=== PATIENT | female | born 1990 | race African-American/Black ===

== ENCOUNTER 2023-08-11 16:06 | Inpatient (IN) | payer OTHER ==
[2023-08-11] MEDS ORDERED: ELECTROLYTE-148 SOLN 1,000 ML IV SCH (16:45)
[2023-08-11] MEDS ORDERED: AMPICILLIN - 2 GM in SODIUM CHLORIDE 100 ML IVPB ONE (17:41)
[2023-08-11] MEDS ORDERED: ACETAMINOPHEN/CAFFEINE/BUTALBITAL 1 TAB PO ONE (17:42)
[2023-08-11] MEDS ORDERED: ACETAMINOPHEN/CAFFEINE/BUTALBITAL 1 TAB PO STA (17:42)
[2023-08-11] MEDS ORDERED: OXYTOCIN 30 UNITS in 0.9% NS 30 UNIT/500 ML INFUS.BAG IVPB SCH (17:45)
[2023-08-11 18:00] VITALS: BMI 36.8
[2023-08-11] MEDS ORDERED: SODIUM CHLORIDE 100 ML IVPB ONE (18:03)
[2023-08-11] MEDS ORDERED: AMPICILLIN SODIUM 2 GM VIAL ONE (18:03)
[2023-08-11] MEDS ORDERED: OXYTOCIN 30 UNITS in 0.9% NS 30 UNIT/500 ML INFUS.BAG IVPB ONE (18:30)
[2023-08-11 18:49] LABS: BASO % 0.3 % (0-2.0); EOS % 0.5 % (0-4.5); HEMATOCRIT 36.2 % (32.4-45.2); HEMOGLOBIN 12.5 GM/dL (10.7-15.3); LYMPH % 23.2 % (8-40); MCH 32.5 pg (25.7-33.7); MCHC 34.4 g/dl (32.0-36.0); MEAN CELL VOLUME 94.4 fl (80-96); MEAN PLT VOLUME 10.4 fl (7.5-11.1); PLATELET COUNT 91 10^3/uL (134-434); RBC 3.84 M/mm3 (3.60-5.2); RDW 14.2 % (11.6-15.6); RETICULOCYTES 2.45 % (0.5-1.5); WHITE BLOOD COUNT 7.1 K/mm3 (4.0-10.0)
[2023-08-11 18:53] LABS: INR 1.1 (0.83-1.09); PROTHROMBIN TIME (PATIENT) 12.7 SEC (9.7-13.0)
[2023-08-11 18:55] LABS: ACTIVATED PTT 30.8 SECONDS (25.2-36.5)
[2023-08-11 19:18] LABS: POTASSIUM 3.8 mmol/L (3.5-5.1)
[2023-08-11 19:21] LABS: ALBUMIN 2.8 g/dl (3.4-5.0); BLOOD UREA NITROGEN 10.8 mg/dL (7-18)
[2023-08-11 19:23] LABS: CREATININE 0.5 mg/dL (0.55-1.3); URIC ACID 3.3 mg/dL (2.6-7.2)
[2023-08-11 19:25] LABS: BILIRUBIN,TOTAL 0.4 mg/dL (0.2-1); TOT PROT 5.9 g/dl (6.4-8.2)
[2023-08-11] MEDS: ELECTROLYTE-148 SOLN 1,000 ML IV SCH (21:35)
[2023-08-11] MEDS ORDERED: AMPICILLIN SODIUM 1 GM VIAL ONE (21:50)
[2023-08-11] MEDS: AMPICILLIN - 1 GM in SODIUM CHLORIDE 100 ML IVPB SCH (21:55)
[2023-08-11] MEDS ORDERED: BUTORPHANOL TARTRATE 2 MG/ML VIAL IVPB ONE (22:19)
[2023-08-11] MEDS ORDERED: PROMETHAZINE HCL 25 MG/1 ML VIAL IVPB ONE (22:45)
[2023-08-11] MEDS ORDERED: BUTORPHANOL TARTRATE 2 MG/ML VIAL ONE (22:53)
[2023-08-11] MEDS ORDERED: PROMETHAZINE HCL 25 MG/1 ML VIAL ONE (22:54)
[2023-08-12] MEDS ORDERED: AMPICILLIN SODIUM 1 GM VIAL ONE ×4 (02:25→13:59)
[2023-08-12] MEDS: AMPICILLIN - 1 GM in SODIUM CHLORIDE 100 ML IVPB SCH ×5 (02:30→22:12)
[2023-08-12] MEDS ORDERED: LACTATED RINGERS SOLUTION 1,000 ML/1,000 ML INFUS.BAG IV SCH ×2 (04:15→04:30)
[2023-08-12] MEDS ORDERED: FENTANYL/BUPIVACAINE/NS/PF - PCEA - 50 ML DISP.SYRIN EP ONE ×4 (04:28→16:56)
[2023-08-12] MEDS ORDERED: LIDOCAINE HCL/EPINEPHRINE/PF 10 ML VIAL ONE (04:43)
[2023-08-12] MEDS ORDERED: FENTANYL CITRATE/PF 50 MCG/ML VIAL ONE (04:44)
[2023-08-12] MEDS ORDERED: BUPIVACAINE HCL/PF 0.25% (2.5MG/ML) 10 ML VIAL ONE (04:44)
[2023-08-12] MEDS ORDERED: NALOXONE HCL 0.4 MG/ML VIAL IVPUSH PRN (05:06)
[2023-08-12] MEDS: ELECTROLYTE-148 SOLN 1,000 ML IV SCH (05:10)
[2023-08-12] MEDS ORDERED: FENTANYL/BUPIVACAINE/NS/PF - PCEA - 50 ML DISP.SYRIN EP SCH ×2 (05:15→10:00)
[2023-08-12] MEDS: FENTANYL/BUPIVACAINE/NS/PF - PCEA - 50 ML DISP.SYRIN EP SCH ×2 (13:45→17:08)
[2023-08-12] MEDS ORDERED: OXYTOCIN 20 UNITS in 0.9% NS 20 UNIT/1,000 ML INFUS.BAG IV ONE ×2 (15:27→18:33)
[2023-08-12] MEDS ORDERED: LIDOCAINE HCL 1% PRESERVATIVE FREE - 30ML VIAL ONE (15:28)
[2023-08-12] MEDS ORDERED: MISOPROSTOL 200 MCG TABLET ONE (15:41)
[2023-08-12] MEDS ORDERED: BENZOCAINE 20% 57 GM BOTTLE TP PRN (15:50)
[2023-08-12] MEDS ORDERED: WITCH HAZEL 50% (TUCKS) 40 PAD/JAR PAD TP PRN (15:50)
[2023-08-12] MEDS ORDERED: METHYLERGONOVINE MALEATE 0.2 MG/1 ML AMP IM PRN (15:50)
[2023-08-12] MEDS ORDERED: BENZOCAINE 28 GM HEMORRHOIDAL OINTMENT TP PRN (15:50)
[2023-08-12] MEDS ORDERED: ACETAMINOPHEN 325 MG TABLET (FP) PO PRN (15:50)
[2023-08-12] MEDS ORDERED: BISACODYL 10 MG SUPP.RECT RC PRN (15:50)
[2023-08-12] MEDS ORDERED: MISOPROSTOL 200 MCG TABLET PR ONE (15:57)
[2023-08-12] MEDS ORDERED: OXYTOCIN 20 UNITS in 0.9% NS 20 UNIT/1,000 ML INFUS.BAG IV SCH (16:00)
[2023-08-12] MEDS ORDERED: TRANEXAMIC ACID 1000 MG/10 ML VIAL ONE (16:36)
[2023-08-12] MEDS ORDERED: METHYLERGONOVINE MALEATE 0.2 MG/1 ML AMP IM ONE (16:40)
[2023-08-12] MEDS ORDERED: TRANEXAMIC ACID 1000 MG/10 ML VIAL IVPB STA (16:40)
[2023-08-12 17:35] LABS: BASO % 0.2 % (0-2.0); EOS % 0.2 % (0-4.5); HEMATOCRIT 37.4 % (32.4-45.2); HEMOGLOBIN 12.6 GM/dL (10.7-15.3); LYMPH % 14.8 % (8-40); MCH 31.8 pg (25.7-33.7); MCHC 33.7 g/dl (32.0-36.0); MEAN CELL VOLUME 94.3 fl (80-96); MEAN PLT VOLUME 10.5 fl (7.5-11.1); MONO % 7.4 % (3.8-10.2); NEUT % 77.4 % (42.8-82.8); PLATELET COUNT 88 10^3/uL (134-434); RBC 3.96 M/mm3 (3.60-5.2); RDW 14.6 % (11.6-15.6); WHITE BLOOD COUNT 9.4 K/mm3 (4.0-10.0)
[2023-08-12] MEDS: IBUPROFEN 600 MG TABLET (FP) PO PRN (22:42)
[2023-08-13 08:14] LABS: BASO % 0.6 % (0-2.0); EOS % 0.8 % (0-4.5); HEMATOCRIT 35.2 % (32.4-45.2); HEMOGLOBIN 11.8 GM/dL (10.7-15.3); LYMPH % 22.6 % (8-40); MCH 32.2 pg (25.7-33.7); MCHC 33.6 g/dl (32.0-36.0); MEAN CELL VOLUME 95.9 fl (80-96); MONO % 8.6 % (3.8-10.2); NEUT % 67.4 % (42.8-82.8); PLATELET COUNT 91 10^3/uL (134-434); RBC 3.67 M/mm3 (3.60-5.2); RDW 14.1 % (11.6-15.6); WHITE BLOOD COUNT 9.8 K/mm3 (4.0-10.0)
[2023-08-13] MEDS ORDERED: FENTANYL/BUPIVACAINE/NS/PF - PCEA - 50 ML DISP.SYRIN EP SCH (10:00)
[2023-08-13] MEDS: PRENATAL VITAMINS W/ FOLIC ACID TABLET (FP) PO SCH (10:50)
[2023-08-13] MEDS: IBUPROFEN 600 MG TABLET (FP) PO PRN ×2 (10:51→22:44)
[2023-08-13] MEDS ORDERED: SIMETHICONE 80 MG TAB.CHEW (FP) PO PRN (17:24)
[2023-08-13] MEDS ORDERED: SENNOSIDES/DOCUSATE COMBO (SENNA PLUS) TABLET (UD) PO PRN (22:00)
[2023-08-14] MEDS: IBUPROFEN 600 MG TABLET (FP) PO PRN (09:21)
[2023-08-14] MEDS: PRENATAL VITAMINS W/ FOLIC ACID TABLET (FP) PO SCH (09:22)
[2023-08-14 09:29] VITALS: BP 121/88; PULSE 77; RESP 17; TEMP 97.5
== END 2023-08-14 14:00 | disposition home or self-care (01) | DRG 560 ==
LOC: JDEL 16:06 → JLDR 17:09 → J3W 08-12 19:30
PROVIDERS: ADMIT Obstetrics & Gynecology; ATTEND Obstetrics & Gynecology
PROC: 0HQ9XZZ Repair Perineum Skin, External Approach (ICD-10-PCS; principal; 2023-08-12)
PROC: 0W8NXZZ Division of Female Perineum, External Approach (ICD-10-PCS; 2023-08-12)
PROC: 10E0XZZ Delivery of Products of Conception, External Approach (ICD-10-PCS; 2023-08-12)
PROC: 10907ZC Drainage of Amniotic Fluid, Therapeutic from Products of Conception, Via Natural or Artificial Opening (ICD-10-PCS; 2023-08-12)
DX: O70.0 First degree perineal laceration during delivery (principal); O72.2 Delayed and secondary postpartum hemorrhage; O99.824 Streptococcus B carrier state complicating childbirth; Z3A.40 40 weeks gestation of pregnancy; Z37.0 Single live birth
CPT/HCPCS: 36415; 59025; 80053; 82977; 83010; 84550; 85025; 85045; 85610; 85730; 86593; 86780; 86850; 86900; 86901

== ENCOUNTER 2024-02-19 09:38 | Inpatient (IN) | payer OTHER ==
[2024-02-19] MEDS ORDERED: SIMETHICONE 80 MG TAB.CHEW (FP) ONE (11:10)
[2024-02-19] MEDS ORDERED: ACETAMINOPHEN INJECTION 100 ML IVPB ONE ×2 (11:11→20:41)
[2024-02-19] MEDS ORDERED: MAG HYDROX/AL HYDROX/SIMETH 30 ML UNIT-DOSE CUP ONE (11:11)
[2024-02-19] MEDS ORDERED: FAMOTIDINE 20 MG/50 ML IVPB 20 MG/50 ML MG IVPB ONE (11:11)
[2024-02-19] MEDS: MAG HYDROX/AL HYDROX/SIMETH 30 ML UNIT-DOSE CUP PO ONE (11:30)
[2024-02-19] MEDS: SIMETHICONE 80 MG TAB.CHEW (FP) PO ONE (11:30)
[2024-02-19] MEDS: FAMOTIDINE 20 MG/50 ML IVPB 20 MG/50 ML MG IVPB ONE (12:20)
[2024-02-19] MEDS: SODIUM CHLORIDE 0.9% 500 ML INFUS.BAG IV ONE (12:20)
[2024-02-19] MEDS: ACETAMINOPHEN 1000 MG/100 ML BAG IVPB ONE ×2 (12:20→20:49)
[2024-02-19 12:39] LABS: BASO % 0.8 % (0-2.0); EOS % 2.4 % (0-4.5); HEMATOCRIT 29.1 % (32.4-45.2); HEMOGLOBIN 9.9 GM/dL (10.7-15.3); LYMPH % 33.8 % (8-40); MCH 31.9 pg (25.7-33.7); MCHC 34.2 g/dl (32.0-36.0); MEAN CELL VOLUME 93.4 fl (80-96); MEAN PLT VOLUME 8.2 fl (7.5-11.1); MONO % 6.5 % (3.8-10.2); NEUT % 56.5 % (42.8-82.8); PLATELET COUNT 286 10^3/uL (134-434); RBC 3.11 M/mm3 (3.60-5.2); RDW 15.5 % (11.6-15.6); WHITE BLOOD COUNT 5.5 K/mm3 (4.0-10.0)
[2024-02-19 12:45] LABS: POTASSIUM 4.1 mmol/L (3.5-5.1)
[2024-02-19 12:46] LABS: INR 1.17 (0.83-1.09); PROTHROMBIN TIME (PATIENT) 13.2 SEC (9.7-13.0)
[2024-02-19 12:47] LABS: CALCIUM 8.7 mg/dL (8.5-10.1)
[2024-02-19 12:48] LABS: ACTIVATED PTT 38.3 SECONDS (25.2-36.5); ALBUMIN 3.4 g/dl (3.4-5.0); BLOOD UREA NITROGEN 19.6 mg/dL (7-18)
[2024-02-19 12:51] LABS: CREATININE 0.6 mg/dL (0.55-1.3)
[2024-02-19 12:52] LABS: BILIRUBIN,TOTAL 0.4 mg/dL (0.2-1)
[2024-02-19 12:53] LABS: TOT PROT 6.5 g/dl (6.4-8.2)
[2024-02-19] MEDS ORDERED: morphine SULFATE 4 MG/ML VIAL ONE (14:49)
[2024-02-19 14:50] LABS: URINE APPEARANCE CLEAR; URINE BILIRUBIN NEGATIVE (NEGATIVE); URINE COLOR YELLOW; URINE GLUCOSE (UA) NEGATIVE (NEGATIVE); URINE KETONE NEGATIVE (NEGATIVE); URINE LEUK ESTERASE NEGATIVE (NEGATIVE); URINE NITRITE NEGATIVE (NEGATIVE); URINE PROTEIN NEGATIVE (NEGATIVE); URINE UROBILINOGEN 0.2 mg/dL (0.2-1.0)
[2024-02-19] MEDS: morphine CARPU-JECT 4 MG/1 ML DISP.SYRIN IVPUSH ONE (14:56)
[2024-02-19] MEDS ORDERED: morphine CARPU-JECT 4 MG/1 ML DISP.SYRIN IVPUSH PRN (20:33)
[2024-02-20] MEDS ORDERED: morphine SULFATE 4 MG/ML VIAL ONE ×3 (01:15→13:39)
[2024-02-20] MEDS: morphine SULFATE 4 MG/ML VIAL IVPUSH PRN (01:22)
[2024-02-20 08:10] LABS: HEMATOCRIT 33.9 % (32.4-45.2); HEMOGLOBIN 11.3 GM/dL (10.7-15.3); MCH 31.3 pg (25.7-33.7); MCHC 33.2 g/dl (32.0-36.0); MEAN CELL VOLUME 94.2 fl (80-96); MEAN PLT VOLUME 8.7 fl (7.5-11.1); PLATELET COUNT 285 10^3/uL (134-434); RDW 15.2 % (11.6-15.6); WHITE BLOOD COUNT 4.7 K/mm3 (4.0-10.0)
[2024-02-20 08:34] LABS: POTASSIUM 4.1 mmol/L (3.5-5.1)
[2024-02-20 08:37] LABS: ALBUMIN 3.3 g/dl (3.4-5.0); BLOOD UREA NITROGEN 12.2 mg/dL (7-18); CALCIUM 8.9 mg/dL (8.5-10.1); MAGNESIUM 1.8 mg/dL (1.8-2.4)
[2024-02-20 08:40] LABS: CREATININE 0.5 mg/dL (0.55-1.3); PHOSPHOROUS 3.6 mg/dL (2.5-4.9)
[2024-02-20 08:42] LABS: BILIRUBIN,TOTAL 0.5 mg/dL (0.2-1); TOT PROT 6.4 g/dl (6.4-8.2)
[2024-02-20] MEDS: FERROUS SO4 325 MG TABLET (FP) PO SCH (10:14)
[2024-02-20] MEDS: ACETAMINOPHEN 1000 MG/100 ML BAG IVPB PRN (10:15)
[2024-02-20] MEDS ORDERED: ACETAMINOPHEN INJECTION 100 ML IVPB ONE (10:16)
[2024-02-20 15:48] VITALS: BMI 34.7
[2024-02-20] MEDS: MULTIVITAMINS (DAILY MVI) TABLET (FP) PO SCH (17:20)
[2024-02-20] MEDS: SODIUM CHLORIDE 1,000 ML IV SCH (17:21)
[2024-02-20] MEDS: CEFAZOLIN 1 GM in DEXTROSE 5%-WATER - 50 ML IVPB SCH (17:54)
[2024-02-20 18:59] LABS: BASO % 0.7 % (0-2.0); EOS % 2.9 % (0-4.5); HEMATOCRIT 29.7 % (32.4-45.2); HEMOGLOBIN 9.9 GM/dL (10.7-15.3); LYMPH % 36.4 % (8-40); MCH 31.2 pg (25.7-33.7); MCHC 33.3 g/dl (32.0-36.0); MEAN CELL VOLUME 93.6 fl (80-96); MEAN PLT VOLUME 8.4 fl (7.5-11.1); MONO % 5.2 % (3.8-10.2); NEUT % 54.8 % (42.8-82.8); PLATELET COUNT 261 10^3/uL (134-434); RBC 3.17 M/mm3 (3.60-5.2); RDW 14.9 % (11.6-15.6); WHITE BLOOD COUNT 4.9 K/mm3 (4.0-10.0)
[2024-02-20] MEDS: traMADol HCL 50 MG TABLET PO PRN (19:12)
[2024-02-21 08:55] LABS: BASO % 0.6 % (0-2.0); EOS % 2.8 % (0-4.5); HEMATOCRIT 29.1 % (32.4-45.2); HEMOGLOBIN 9.6 GM/dL (10.7-15.3); LYMPH % 33.9 % (8-40); MCH 31.1 pg (25.7-33.7); MCHC 33.1 g/dl (32.0-36.0); MEAN CELL VOLUME 93.9 fl (80-96); MEAN PLT VOLUME 8.8 fl (7.5-11.1); MONO % 6.2 % (3.8-10.2); NEUT % 56.5 % (42.8-82.8); PLATELET COUNT 263 10^3/uL (134-434); RDW 15.2 % (11.6-15.6); WHITE BLOOD COUNT 4.7 K/mm3 (4.0-10.0)
[2024-02-21 09:11] LABS: BLOOD UREA NITROGEN 13.4 mg/dL (7-18); CALCIUM 8.1 mg/dL (8.5-10.1); MAGNESIUM 1.7 mg/dL (1.8-2.4)
[2024-02-21 09:12] LABS: ALBUMIN 2.8 g/dl (3.4-5.0)
[2024-02-21 09:15] LABS: CREATININE 0.5 mg/dL (0.55-1.3)
[2024-02-21 09:16] LABS: BILIRUBIN,TOTAL 0.5 mg/dL (0.2-1); TOT PROT 5.5 g/dl (6.4-8.2)
[2024-02-21] MEDS: MAGNESIUM OXIDE 400 MG TABLET (FP) PO ONE (10:51)
[2024-02-21] MEDS: traMADol HCL 50 MG TABLET PO PRN (21:58)
[2024-02-22] MEDS: oxyCODONE HCL 5 MG TABLET PO PRN ×2 (08:36→13:12)
[2024-02-22 08:38] LABS: BASO % 0.7 % (0-2.0); EOS % 2.5 % (0-4.5); HEMOGLOBIN 10.8 GM/dL (10.7-15.3); MCH 30.5 pg (25.7-33.7); MCHC 32.6 g/dl (32.0-36.0); MEAN CELL VOLUME 93.7 fl (80-96); MEAN PLT VOLUME 9.2 fl (7.5-11.1); MONO % 6.4 % (3.8-10.2); NEUT % 59.4 % (42.8-82.8); PLATELET COUNT 305 10^3/uL (134-434); RBC 3.53 M/mm3 (3.60-5.2); RDW 15.1 % (11.6-15.6)
[2024-02-22 08:50] LABS: POTASSIUM 4.3 mmol/L (3.5-5.1)
[2024-02-22 09:04] LABS: BLOOD UREA NITROGEN 11.2 mg/dL (7-18)
[2024-02-22 09:07] LABS: ALBUMIN 3.2 g/dl (3.4-5.0); CREATININE 0.4 mg/dL (0.55-1.3); MAGNESIUM 1.9 mg/dL (1.8-2.4)
[2024-02-22 09:09] LABS: TOT PROT 6.3 g/dl (6.4-8.2)
[2024-02-22 09:11] LABS: BILIRUBIN,TOTAL 0.2 mg/dL (0.2-1)
[2024-02-22] MEDS: DOCUSATE SODIUM 100 MG CAPSULE (FP) PO SCH (12:19)
[2024-02-22] MEDS: POLYETHYLENE GLYCOL (HEALTHYLAX) 3350 17 GM PACKET PO SCH (12:19)
[2024-02-22 15:20] VITALS: RESP 18
[2024-02-22] MEDS: ENOXAPARIN NA (PORCINE) 40 MG/0.4 ML DISP.SYRIN SQ SCH (16:06)
[2024-02-22] MEDS: CEPHALEXIN MONOHYDRATE 500 MG CAPSULE (UD) PO SCH (16:06)
[2024-02-23 09:01] LABS: BASO % 0.8 % (0-2.0); EOS % 2.3 % (0-4.5); HEMATOCRIT 32.6 % (32.4-45.2); HEMOGLOBIN 10.9 GM/dL (10.7-15.3); LYMPH % 37.1 % (8-40); MCH 31.1 pg (25.7-33.7); MCHC 33.3 g/dl (32.0-36.0); MEAN CELL VOLUME 93.4 fl (80-96); MONO % 5.4 % (3.8-10.2); NEUT % 54.4 % (42.8-82.8); PLATELET COUNT 259 10^3/uL (134-434); RBC 3.49 M/mm3 (3.60-5.2); RDW 15.3 % (11.6-15.6); WHITE BLOOD COUNT 5.2 K/mm3 (4.0-10.0)
[2024-02-23 09:02] VITALS: BP 107/54; PULSE 79; TEMP 98.9
[2024-02-23 09:15] LABS: POTASSIUM 4.3 mmol/L (3.5-5.1)
[2024-02-23 09:19] LABS: CALCIUM 8.8 mg/dL (8.5-10.1)
[2024-02-23 09:20] LABS: ALBUMIN 3.4 g/dl (3.4-5.0)
[2024-02-23 09:23] LABS: BLOOD UREA NITROGEN 9.1 mg/dL (7-18); CREATININE 0.4 mg/dL (0.55-1.3)
[2024-02-23 09:25] LABS: BILIRUBIN,TOTAL 0.4 mg/dL (0.2-1); TOT PROT 6.5 g/dl (6.4-8.2)
== END 2024-02-23 12:43 | disposition home or self-care (01) | DRG 813 ==
LOC: JER 09:38 → JERBED 19:51 → J6S 02-20 13:54
PROVIDERS: ADMIT Internal Medicine; ATTEND Nurse Practitioner Family
PROC: 0W9G30Z Drainage of Peritoneal Cavity with Drainage Device, Percutaneous Approach (ICD-10-PCS; principal; 2024-02-20)
DX: L76.34 Postprocedural seroma of skin and subcutaneous tissue following other procedure (principal); D69.6 Thrombocytopenia, unspecified; L02.211 Cutaneous abscess of abdominal wall; D50.0 Iron deficiency anemia secondary to blood loss (chronic); E66.9 Obesity, unspecified; Z68.34 Body mass index [BMI] 34.0-34.9, adult; S30.1XXA Contusion of abdominal wall, initial encounter; X58.XXXA Exposure to other specified factors, initial encounter; Y93.9 Activity, unspecified; Y92.9 Unspecified place or not applicable; Y99.9 Unspecified external cause status; Y83.8 Other surgical procedures as the cause of abnormal reaction of the patient, or of later complication, without mention of misadventure at the time of the procedure
CPT/HCPCS: 36415; 49406; 74176-TC; 74177-TC; 80053; 81003; 82728; 83540; 83550; 83605; 83690; 83735; 84100; 84703; 85025; 85027; 85610; 85730; 86850; 86900; 86901; 86922; 87070; 87075; 87086; 87102; 87116; 87205; 87206; 87210; 93005; 93010; 99285-25; J0131; Q9967

== ENCOUNTER 2024-03-07 21:08 | Emergency (ER) | payer OTHER ==
[2024-03-07 21:21] VITALS: BP 108/71; PULSE 89; RESP 20; TEMP 98.9; BMI 31.4
[2024-03-07] MEDS ORDERED: ACETAMINOPHEN 325 MG TABLET (FP) ONE (23:00)
[2024-03-07] MEDS: ACETAMINOPHEN 325 MG TABLET (FP) PO ONE (23:02)
[2024-03-07] MEDS ORDERED: KETOROLAC TROMETHAMINE 15 MG/ML VIAL ONE (23:18)
[2024-03-07] MEDS: KETOROLAC TROMETHAMINE 15 MG/ML VIAL IM ONE (23:22)
== END 2024-03-07 23:39 | disposition left against medical advice (07) ==
LOC: JER 21:08
PROC: 3E0133Z Introduction of Anti-inflammatory into Subcutaneous Tissue, Percutaneous Approach (ICD-10-PCS; principal; 2024-03-07)
DX: T85.628A Displacement of other specified internal prosthetic devices, implants and grafts, initial encounter (principal); Y73.2 Prosthetic and other implants, materials and accessory gastroenterology and urology devices associated with adverse incidents
CPT/HCPCS: 99284-25

== ENCOUNTER 2024-03-08 10:48 | Emergency (ER) | payer OTHER ==
[2024-03-08 10:57] VITALS: TEMP 97.5; BMI 31.4
[2024-03-08 14:16] LABS: BASO % 0.7 % (0-2.0); EOS % 1.2 % (0-4.5); HEMATOCRIT 33.6 % (32.4-45.2); LYMPH % 25.8 % (8-40); MCH 30.2 pg (25.7-33.7); MCHC 32.7 g/dl (32.0-36.0); MEAN CELL VOLUME 92.2 fl (80-96); MEAN PLT VOLUME 9.6 fl (7.5-11.1); MONO % 6.1 % (3.8-10.2); NEUT % 66.2 % (42.8-82.8); PLATELET COUNT 262 10^3/uL (134-434); RBC 3.64 M/mm3 (3.60-5.2); RDW 14.9 % (11.6-15.6); WHITE BLOOD COUNT 6.9 K/mm3 (4.0-10.0)
[2024-03-08 14:20] LABS: INR 1.16 (0.83-1.09); PROTHROMBIN TIME (PATIENT) 13.1 SEC (9.7-13.0)
[2024-03-08 14:23] LABS: ACTIVATED PTT 38.2 SECONDS (25.2-36.5)
[2024-03-08 14:24] LABS: POTASSIUM 4.4 mmol/L (3.5-5.1)
[2024-03-08] MEDS ORDERED: morphine SULFATE 4 MG/ML VIAL ONE (14:25)
[2024-03-08] MEDS ORDERED: ACETAMINOPHEN INJECTION 100 ML IVPB ONE (14:25)
[2024-03-08 14:26] LABS: BLOOD UREA NITROGEN 11.7 mg/dL (7-18)
[2024-03-08 14:27] LABS: ALBUMIN 3.4 g/dl (3.4-5.0)
[2024-03-08 14:30] LABS: CREATININE 0.4 mg/dL (0.55-1.3)
[2024-03-08 14:31] LABS: BILIRUBIN,TOTAL 0.4 mg/dL (0.2-1); TOT PROT 6.8 g/dl (6.4-8.2)
[2024-03-08] MEDS: ACETAMINOPHEN 1000 MG/100 ML BAG IVPB ONE (14:40)
[2024-03-08] MEDS: morphine CARPU-JECT 4 MG/1 ML DISP.SYRIN IVPUSH ONE (14:41)
[2024-03-08] MEDS: SODIUM CHLORIDE 1,000 ML IV STA (14:41)
[2024-03-08] MEDS ORDERED: FENTANYL CITRATE/PF 50 MCG/ML VIAL ONE (15:15)
[2024-03-08] MEDS: FENTANYL CITRATE/PF 50 MCG/ML VIAL IVPUSH SCH (15:18)
[2024-03-08 15:53] VITALS: BP 108/68; PULSE 60; RESP 14
[2024-03-08] MEDS: SODIUM CHLORIDE 500 ML IV SCH (16:04)
== END 2024-03-08 16:47 | disposition home or self-care (01) ==
LOC: JER 10:48
PROC: 3E033NZ Introduction of Analgesics, Hypnotics, Sedatives into Peripheral Vein, Percutaneous Approach (ICD-10-PCS; principal; 2024-03-08)
PROC: 3E0337Z Introduction of Electrolytic and Water Balance Substance into Peripheral Vein, Percutaneous Approach (ICD-10-PCS; 2024-03-08)
DX: T85.848A Pain due to other internal prosthetic devices, implants and grafts, initial encounter (principal); K91.872 Postprocedural seroma of a digestive system organ or structure following a digestive system procedure
CPT/HCPCS: 36415; 49407; 80053; 84703; 85025; 85610; 85730; 86850; 86900; 86901; 87070; 87075; 87102; 87116; 87205; 87206; 87210; 99284-25

== ENCOUNTER 2024-03-27 12:57 | Emergency (ER) | payer OTHER ==
[2024-03-27 13:04] VITALS: BP 116/72; PULSE 88; RESP 20; TEMP 98.2; BMI 31.4
[2024-03-27] MEDS ORDERED: IBUPROFEN 600 MG TABLET (FP) PO ONE (13:52)
[2024-03-27] MEDS: IBUPROFEN 600 MG TABLET (FP) PO ONE (13:56)
== END 2024-03-27 14:36 | disposition home or self-care (01) ==
LOC: JERFT 12:57
DX: M54.6 Pain in thoracic spine (principal); V43.12XA Car passenger injured in collision with other type car in nontraffic accident, initial encounter; Y92.481 Parking lot as the place of occurrence of the external cause
CPT/HCPCS: 99283-25